=== PATIENT | female | born 1990 | race Caucasian/White ===

== ENCOUNTER 2017-04-25 08:20 | Inpatient (IN) | payer BC ==
[2017-04-25 09:22] LABS: Glucose,Whole Blood 99 mg/dL (75-99)
[2017-04-25 09:39] VITALS: BMI 32.2
[2017-04-25] MEDS ORDERED: CARBOPROST TROMETHAMINE 250 MCG/ML 1 ML AMP IM PRN (09:42)
[2017-04-25] MEDS ORDERED: OXYTOCIN 10 UNIT/ML 1 ML VIAL IM PRN (09:42)
[2017-04-25] MEDS ORDERED: LIDOCAINE 1% (PF) 10 MG/ML (30 ML SDV) SQ PRN (09:42)
[2017-04-25] MEDS ORDERED: METHYLERGONOVINE 0.2 MG/ML 1 ML AMP IM PRN (09:42)
[2017-04-25] MEDS ORDERED: TERBUTALINE 1 MG/ML VIAL SQ PRN (09:42)
[2017-04-25] MEDS ORDERED: OXYTOCIN 20 UNITS/1000 ML NS 1,000 ML IV SCH (09:45)
[2017-04-25] MEDS: LACTATED RINGERS 1,000 ML IV SCH ×3 (10:00→15:25)
[2017-04-25 10:08] LABS: Basophils % (A) 0 %; CH 29.5; CHCM 33.5; Eosinophils # (A) 0.1 k/uL (0-0.7); Eosinophils % (A) 1 %; HCT 36.8 % (34.0-46.0); HDW 3.39; Large Platelets Flag Moderate; Luc # (Auto) 0.23; Luc % (Auto) 2; Lymphocytes # (A) 1.6 k/uL (1.0-4.8); Lymphocytes % (A) 15 %; MCH 28.8 pg (25.0-35.0); MCHC 32.5 g/dL (31.0-37.0); MCV 88.6 fL (80.0-100.0); Mean Platelet Volume 11.2; Monocytes # (A) 0.4 k/uL (0-1.0); Monocytes % (A) 4 %; Neutrophils # (A) 8.1 k/uL (1.3-7.7); Neutrophils % (A) 78 %; RBC 4.15 m/uL (3.80-5.40); RDW 15.3 % (11.5-15.5); WBC 10.4 k/uL (3.8-10.6); WBC (Perox) 10.46
--- NOTE | 2017-04-25 10:20 | P.HPOB ---
History of Present Illness H&P Date: 04/25/17 Chief Complaint: My water broke at 5:00 this morning This is a 27-year-old white female 1 para 0 EDC 05/11/2017 at 37-5/7 weeks' gestation. Patient presents with a history of her water breaking this morning, clear fluid, mild irregular contractions to follow. She denies vaginal bleeding. Fetus is been active throughout the . history is significant for blood type A positive, rubella status immune. VDRL testing, urine culture, hepatitis B surface antigen, HIV testing, gonorrhea and chlamydia cultures all negative. One-hour Glucola 155, three- hour GTT consistent with gestational diabetes. Home blood sugar control good. Group B strep cultures negative. Past medical history is significant for asthma no inhaler used as an adult. History of migraine headaches in the past. Past surgical history cholecystectomy 2006, meniscus repair 2007, wisdom teeth extracted 2015, adenoidectomy and tonsillectomy 1994. Current medications dye clean just as needed, vitamin daily, propranolol 40 mg twice daily, vitamin D. ALLERGIES include dairy to which reports intolerance, ibuprofen 2 to reports shortness of breath and seasonal ALLERGIES. Family history is significant for breast cancer in patient's mother, leukemia in her grandfather, diabetes in a nulligravida and father. 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 On exam this is a pleasant white female, 5 foot 0 inches, 165 pounds, vital signs are stable and she is afebrile. The general physical exam is within normal limits. The cervix is 2-3 cm dilated, 60-70% effaced, -2 station, vertex presentation, obvious clear fluid on the perineal body with no fore bag palpated. heart rate is in the 140s with frequent accelerations consistent with reactive NST. Uterine contractions are occurring sporadically, every 8-12 minutes apart of mild intensity. Impression: 37-5/7 weeks intrauterine , spontaneous amniorrhexis. Plan: Close maternal and surveillance, epidural as needed, oxytocin augmentation as needed, anticipate normal spontaneous vaginal delivery. Blood sugar on admission 99, no further blood sugar monitoring required. Review of Systems Except as in HPI Constitutional: Reports as per HPI Past Medical History Past Medical History: No Reported History, Asthma Additional Past Medical History / Comment(s): Hx Migraine headaches, gestional diabetes 03/17/17 History of Any Multi-Drug Resistant Organisms: None Reported Past Surgical History: Adenoidectomy, Cholecystectomy, Tonsillectomy Past Anesthesia/Blood Transfusion Reactions: Postoperative Nausea & Vomiting ( PONV) Past Psychological History: Depression Additional Psychological History / Comment(s): hx depression 9 years ago. none recently Smoking Status: Never smoker Past Alcohol Use History: None Reported Past Drug Use History: None Reported - Past Family History Father Family Medical History: No Reported History Medications and Allergies Home Medications Medication Instructions Recorded Confirmed Type Multivitamins, Thera [Multivitamin] 1 tab PO DAILY 07/11/16 04/25/17 History Propranolol [Inderal] 40 mg PO QAM 07/11/16 04/25/17 History Cholecalciferol (Vitamin D3) 5,000 unit PO DAILY 03/17/17 04/25/17 History [Vitamin D3] Pnv,Calcium 72/Iron/Folic Acid 1 tab PO DAILY 03/17/17 04/25/17 History [ Plus Tablet] Allergies Allergy/AdvReac Type Severity Reaction Status Date / Time [place] And Derivatives Allergy Diarrhea Verified 03/17/17 15:08 Milk Containing Products Allergy Nausea & Verified 03/17/17 15:08 [Dairy] Vomiting & Diarrhea ibuprofen AdvReac Nausea & Verified 03/17/17 14:54 Vomiting Exam - Vital Signs Vital signs: Vital Signs Temp Pulse Resp BP Pulse Ox 04/25/17 09:17 97.7 F 90 18 136/77 98 Intake and Output 04/24/17 04/25/17 04/25/17 22:59 06:59 14:59 Other: Weight 74.843 kg Patient Weight 04/26/17 06:59 Weight 74.843 kg Please see dictation under HPI Assessment and Plan Plan: Close maternal and surveillance. Oxytocin augmentation per hospital protocol. Analgesic options have been reviewed with the patient. Anticipate normal spontaneous vaginal delivery Time with Patient: Less than 30
[2017-04-25] MEDS: BUTORPHANOL 1 MG/ML 1 ML VIAL IV PRN ×2 (12:02→14:14)
[2017-04-25] MEDS ORDERED: BUPIVACAINE (PF) 0.25% 30 ML VIAL ONE (15:09)
[2017-04-25] MEDS ORDERED: fentaNYL (PF) 50 MCG/ML 5 ML AMP ONE (15:09)
[2017-04-25] MEDS ORDERED: SODIUM CHLORIDE 0.9% 100 ML BAG ONE (15:09)
[2017-04-25] MEDS ORDERED: BUPIVACAINE (PF) 0.25% 25 ML, fentaNYL (PF) 200 MCG in SODIUM CHLORIDE 0.9% 71 ML EPIDURAL ONE (15:41)
[2017-04-25] MEDS ORDERED: HYDROCORTISONE 2.5% RECTAL CREAM 30 GM TUBE RECTAL PRN (21:31)
[2017-04-25] MEDS ORDERED: diphenhydrAMINE 25 MG CAP PO PRN (21:31)
[2017-04-25] MEDS ORDERED: diphenhydrAMINE 50 MG/ML 1 ML VIAL IVP PRN ×2 (21:31)
[2017-04-25] MEDS ORDERED: WITCH HAZEL 1 EACH MED..PAD TOPICAL PRN (21:31)
[2017-04-25] MEDS ORDERED: diphenhydrAMINE ELIXIR 25 MG/10 ML CUP PO PRN (21:31)
[2017-04-25] MEDS ORDERED: IBUPROFEN 600 MG TAB PO PRN (21:31)
[2017-04-25] MEDS ORDERED: ACETAMINOPHEN TAB 325 MG TAB PO PRN (21:31)
[2017-04-25] MEDS ORDERED: LANOLIN CREAM 5 GM TUBE TOPICAL PRN (21:31)
[2017-04-25] MEDS ORDERED: BENZOCAINE SPRAY 57GM TOPICAL PRN (21:31)
[2017-04-25] MEDS ORDERED: ZOLPIDEM 5 MG TAB PO PRN (21:31)
[2017-04-25] MEDS ORDERED: diphenhydrAMINE 50 MG CAP PO PRN (21:31)
[2017-04-25] MEDS ORDERED: SIMETHICONE 80 MG CHEWABLE PO PRN (21:31)
--- NOTE | 2017-04-25 21:31 | P.PROBDLV ---
Vaginal Delivery Note - . Vaginal Delivery Note: This is a 27-year-old white female 1 para 0 EDC 05/11/2017 at 37-5/7 weeks' gestation. Patient presented earlier this morning with a history of spontaneous amniorrhexis, clear fluid that occurred at home at 0500 hrs. She had no uterine contractions. Upon admission cervix was 2-3 cm dilated, clear fluid was noted, 60% effacement was documented. Oxytocin was started and titrated per hospital protocol. Group B strep cultures were negative, blood type A+, rubella status immune. Please see my dictated history and physical for details. Patient eventually became uncomfortable, epidural was requested and placed. She progressed through the first stage of labor was judged to be completely dilated at 2005 hours. She pushed in the second stage of labor for 1 hour and 3 minutes. Ultimately the perineal body was prepped and draped in usual sterile fashion. Infant's head delivered occiput anterior and he restituted accordingly. There was a nuchal cord 1 that was reduced on the perineal body. The left or anterior shoulder was gently and easily delivered from underneath the pubic symphysis at which time the oropharynx, nasopharynx, and external nares were bulb suctioned. Patient was officially delivered of a liveborn male infant at 12/17/2007 hours. Umbilical cord was doubly clamped and ligated, he was handed to waiting nurses for evaluation where scores of 9 and 9 at one and 5 minutes respectively were given. Placenta was delivered spontaneously , it was inspected and noted to be intact with trivascular cord at 2111 hours. At this time the perineal body was redraped. Inspection of the cervix, vagina, perineum, periurethral and perirectal areas revealed a small first-degree midline laceration repaired in the usual fashion using a single [id number] suture of 3-0 Vicryl. Excellent reapproximation was noted. Fundus was firm and in the midline, symmetric and 18 week size upon completion of delivery. weighed 2820 g or 6 lbs. 3 oz. All sponge needle and instrument counts are correct at the end of the procedure. Patient and her are declining circumcision further son.
--- NOTE | 2017-04-26 07:04 | P.PN ---
Subjective Principal diagnosis: day #1 Slept well. Pain well controlled. Moderate lochia rubra. No complaints. Objective - Vital Signs Vital signs: Vital Signs Temp 98.3 F 04/26/17 04:00 Pulse 99 04/26/17 04:00 Resp 16 04/26/17 04:00 BP 127/67 04/26/17 04:00 Pulse Ox 98 04/25/17 09:17 Intake & Output 04/25/17 04/26/17 04/26/17 18:59 06:59 18:59 Intake Total 1999 1000 Output Total 301 Balance 1999 699 Weight 74.843 kg Intake: IV 1999 1000 Invasive Line 1 1000 1000 Lactated Ringers 1,000 ml 1000 @ 125 mls/hr IV .Q8H JANE Rx#:[id number] Output: Urine 1 Estimated Blood Loss 300 Other: # Voids 1 - Constitutional General appearance: Present: average body habitus, cooperative - EENT Eyes: Present: PERRLA ENT: Present: hearing grossly normal - Neck Neck: Present: normal ROM - Respiratory Respiratory: bilateral: CTA - Cardiovascular Rhythm: regular - Gastrointestinal General gastrointestinal: Present: normal bowel sounds - Genitourinary Genitourinary Comment(s): Perineal body clean and dry. Fundus firm and in the midline, symmetric, 18 week size. - Integumentary Integumentary: Present: normal, normal turgor - Neurologic Neurologic: Present: CNII-XII intact - Musculoskeletal Musculoskeletal: Present: gait normal, strength equal bilaterally - Psychiatric Psychiatric: Present: A&O x's 3, appropriate affect, intact judgment & insight - Labs CBC & Chem 7: 04/25/17 09:53 Labs: Abnormal Lab Results - Last 24 Hours (Table) 04/25/17 Range/Units 09:53 Plt Count 117 L (150-450) k/uL Neutrophils # 8.1 H (1.3-7.7) k/uL Assessment and Plan Plan: Continue care. Likely discharge home tomorrow. Time with Patient: Less than 30
[2017-04-26] MEDS: SENNOSIDES-DOCUSATE SODIUM 1 EACH TAB PO SCH (08:59)
[2017-04-26] MEDS: Acetaminophen-Codeine 300-30mg TAB PO PRN ×2 (13:14→17:50)
[2017-04-27] MEDS: SENNOSIDES-DOCUSATE SODIUM 1 EACH TAB PO SCH ×2 (00:27→08:05)
[2017-04-27] MEDS: Acetaminophen-Codeine 300-30mg TAB PO PRN (00:27)
[2017-04-27 00:54] VITALS: RESP 16
[2017-04-27 08:02] VITALS: BP 130/72; PULSE 90; TEMP 97.6
--- NOTE | 2017-04-27 08:49 | P.DS ---
Providers Date of admission: 04/25/17 09:11 Expected date of discharge: 04/27/17 Attending physician: More Douglas Primary care physician: Stated None - Discharge Diagnosis(es) (1) Normal spontaneous vaginal delivery Current Visit: Yes Status: Acute Hospital Course: The patient is a 27-year-old 1 para 0 admitted at 37-5/7 weeks by good dating parameters she is admitted with a spontaneous rupture member is clear fluid. On labor and delivery she had Pitocin started and ultimately an epidural catheter was placed for analgesia. She progressed to complete where after she pushed to a normal spontaneous vaginal delivery of a viable 6 lbs. 3 oz. baby boy with Apgars of 9 at 1 minute and 9 at 5 minutes. Her course was unremarkable vital signs remaining stable and her temperature was afebrile throughout. She was deemed stable for discharge by the morning of post day #2 was discharged home to follow-up in the office in 6 weeks' time routinely. Discharge instructions included calling for any significantly increased bleeding or foul-smelling lochia, significantly increased fever abdominal pain, perineal complaints, breast complaints, or anything else that concerned her. She was additionally instructed to have nothing in the vagina for at least 6 weeks time to include intercourse. She understood her instructions and agrees to follow up as noted above. Discharge medications included pkzh-xcp-[id number] analgesic pain medications as well as a prescription for Tylenol 3, 1-2 by mouth every 6 hours when necessary pain, #12 dispensed with no refills. Maternal blood type is A+ and rubella status is immune. Procedures: #1. Pitocin augmentation #2. Epidural analgesia #3. Normal spontaneous vaginal delivery #4. Repair of perineal laceration Patient Condition at Discharge: Good Plan - Discharge Summary New Discharge Prescriptions: No Action Multivitamins, Thera [Multivitamin] 1 tab PO DAILY Propranolol [Inderal] 40 mg PO QAM Pnv,Calcium 72/Iron/Folic Acid [ Plus Tablet] 1 tab PO DAILY Cholecalciferol (Vitamin D3) [Vitamin D3] 5,000 unit PO DAILY Discharge Medication List Multivitamins, Thera [Multivitamin] 1 tab PO DAILY 07/11/16 [History] Propranolol [Inderal] 40 mg PO QAM 07/11/16 [History] Cholecalciferol (Vitamin D3) [Vitamin D3] 5,000 unit PO DAILY 03/17/17 [History] Pnv,Calcium 72/Iron/Folic Acid [ Plus Tablet] 1 tab PO DAILY 03/17/17 [ History] Follow up Appointment(s)/Referral(s): Mauri Merino MD [STAFF PHYSICIAN] - 6 Weeks Activity/Diet/Wound Care/Special Instructions: Discharge home today 04/27/2017. Make follow up appt for 6wks. Dr. Merino [phone]... Discharge Disposition: HOME SELF-CARE
== END 2017-04-27 10:50 | disposition home or self-care (01) | DRG 775 ==
LOC: FBPOP 08:20 → 4FBP 09:11
PROVIDERS: ADMIT Obstetrics & Gynecology; ATTEND Obstetrics & Gynecology
PROC: 10E0XZZ Delivery of Products of Conception, External Approach (ICD-10-PCS; principal; 2017-04-25)
PROC: 0HQ9XZZ Repair Perineum Skin, External Approach (ICD-10-PCS; 2017-04-25)
PROC: 00HU33Z Insertion of Infusion Device into Spinal Canal, Percutaneous Approach (ICD-10-PCS; 2017-04-25)
PROC: 3E0R3CZ (ICD-10-PCS; 2017-04-25)
DX: O24.429 Gestational diabetes mellitus in childbirth, unspecified control (principal); O99.354 Diseases of the nervous system complicating childbirth; O69.81X0 Labor and delivery complicated by cord around neck, without compression, not applicable or unspecified; O70.0 First degree perineal laceration during delivery; O99.344 Other mental disorders complicating childbirth; F32.9 Major depressive disorder, single episode, unspecified; O99.52 Diseases of the respiratory system complicating childbirth; J45.909 Unspecified asthma, uncomplicated; G43.909 Migraine, unspecified, not intractable, without status migrainosus; Z37.0 Single live birth; Z3A.37 37 weeks gestation of pregnancy; Z79.899 Other long term (current) drug therapy; Z88.6 Allergy status to analgesic agent
CPT/HCPCS: 85025; 88307

== ENCOUNTER 2019-02-17 14:34 | Inpatient (IN) | payer BC ==
[2019-02-17] MEDS: LACTATED RINGERS 1,000 ML IV SCH ×2 (17:15→18:03)
[2019-02-17] MEDS ORDERED: METHYLERGONOVINE 0.2 MG/ML 1 ML AMP IM PRN (17:20)
[2019-02-17] MEDS ORDERED: TERBUTALINE 1 MG/ML VIAL SQ PRN (17:20)
[2019-02-17] MEDS ORDERED: OXYTOCIN 10 UNIT/ML 1 ML VIAL IM PRN (17:20)
[2019-02-17] MEDS ORDERED: LIDOCAINE 0.5% (PF) 5 MG/ML (50 ML SDV) SQ PRN (17:20)
[2019-02-17] MEDS ORDERED: CARBOPROST TROMETHAMINE 250 MCG/ML 1 ML AMP IM PRN (17:20)
[2019-02-17] MEDS ORDERED: BUTORPHANOL 1 MG/ML 1 ML VIAL IV PRN (17:22)
--- NOTE | 2019-02-17 17:26 | P.HPOB ---
History of Present Illness H&P Date: 02/17/19 Chief Complaint: 38-0/7 weeks, labor The patient is a 29-year-old 2 para 1001 admitted at 38-0/7 weeks as established by last menstrual period and confirmed by 6 week ultrasound. She is admitted in early active labor with all signs reassuring having had document cer vical change in triage. Her has been uncomplicated and group B strep status is negative. Obstetrical history: 2 para 1001 with 1 previous term vaginal delivery without complications though she was a gestational diabetic. EDC for this is 03/03/2019 as established by last menstrual period and confirmed by a 6 week ultrasound. Laboratory workup demonstrates a blood type of A+ with a negative antibody screen. Rubella status is immune. The remainder of the laboratory workup was within normal limits. Early Glucola as well as second trimester Glucola were within normal limits. Group B strep status is negative. Gynecologic history: Unremarkable with no history of any infections to include STDs. Review of Systems Review of systems is confined to history of present illness. Past Medical History Past Medical History: No Reported History, Asthma Additional Past Medical History / Comment(s): Hx Migraine headaches, gestional diabetes 03/17/17 History of Any Multi-Drug Resistant Organisms: None Reported Past Surgical History: Adenoidectomy, Cholecystectomy, Tonsillectomy Past Anesthesia/Blood Transfusion Reactions: Postoperative Nausea & Vomiting (PONV) Smoking Status: Former smoker - Past Family History Father Family Medical History: No Reported History Medications and Allergies Home Medications Medication Instructions Recorded Confirmed Type No Known Home Medications 02/17/19 02/17/19 History Allergies Allergy/AdvReac Type Severity Reaction Status Date / Time [place] And Derivatives Allergy Diarrhea Verified 02/17/19 14:44 Milk Containing Products Allergy Nausea & Verified 02/17/19 14:44 [Dairy] Vomiting & Diarrhea ibuprofen AdvReac Nausea & Verified 02/17/19 14:44 Vomiting Exam Vital Signs Temp Pulse Resp BP Pulse Ox 02/17/19 14:51 97.4 F L 75 16 121/81 98 Intake and Output 02/17/19 02/17/19 02/17/19 06:59 14:59 22:59 Other: Weight 69.853 kg In general, this is a well-developed, well-nourished white female in some discomfort as she is in labor. Her heart has a regular rhythm and rate without murmur. Her lungs are clear to auscultation bilaterally in all [place]. Her abdomen is gravid, nondistended, has normal active bowel sounds, is soft, nontender, and without any palpable masses aside from uterine fundus. Her extremities are without any cyanosis, clubbing, or edema and are nontender to palpation bilaterally. Digital cervical examination demonstrates her cervix to be 6-7 cm dilated, approximately 70% effaced, the vertex in presentation at -2 station. Artificial rupture of membranes is carried out demonstrating clear fluid. Assessment and Plan (1) Active labor at term Current Visit: Yes Status: Acute Code(s): [id number] - SNOMED Code(s): 59648916 Plan: The patient is admitted for close maternal and surveillance and expectant management will be practiced. She is a good candidate for both IV or epidural analgesia, whichever she may choose. At this time she is requesting epidural analgesia and is in the process of receiving her bolus. Should she made no significant progress over the next hour or 2, Pitocin augmentation will be added. I would anticipate normal spontaneous vaginal delivery.
[2019-02-17 17:33] LABS: Basophils % (A) 0 %; Eosinophils # (A) 0.1 k/uL (0-0.7); Eosinophils % (A) 1 %; HCT 38.3 % (34.0-46.0); HGB 13.1 gm/dL (11.4-16.0); Lymphocytes # (A) 2.2 k/uL (1.0-4.8); Lymphocytes % (A) 21 %; MCH 29.7 pg (25.0-35.0); MCHC 34.2 g/dL (31.0-37.0); MCV 86.9 fL (80.0-100.0); Mean Platelet Volume 11.4; Monocytes # (A) 0.6 k/uL (0-1.0); Monocytes % (A) 5 %; Neutrophils # (A) 7.5 k/uL (1.3-7.7); Neutrophils % (A) 71 %; Platelet Count 122 k/uL (150-450); RDW 14.5 % (11.5-15.5); WBC 10.5 k/uL (3.8-10.6)
[2019-02-17] MEDS ORDERED: ROPIVACAINE 5MG/ML 20ML VIAL ONE (17:55)
[2019-02-17] MEDS ORDERED: SODIUM CHLORIDE 0.9% 100 ML BAG ONE (17:55)
[2019-02-17] MEDS ORDERED: fentaNYL (PF) 50 MCG/ML 5 ML AMP ONE (17:55)
[2019-02-17] MEDS ORDERED: BENZOCAINE/MENTHOL SPRAY 1 GM/SPRAY AEROSOL TOPICAL PRN (20:38)
[2019-02-17] MEDS ORDERED: HYDROCORTISONE 2.5% RECTAL CREAM 30 GM TUBE RECTAL PRN (20:38)
[2019-02-17] MEDS ORDERED: LANOLIN CREAM 5 GM TUBE TOPICAL PRN (20:38)
[2019-02-17] MEDS ORDERED: diphenhydrAMINE 50 MG/ML 1 ML VIAL IVP PRN ×2 (20:38)
[2019-02-17] MEDS ORDERED: diphenhydrAMINE 50 MG CAP PO PRN (20:38)
[2019-02-17] MEDS ORDERED: SIMETHICONE 80 MG CHEWABLE PO PRN (20:38)
[2019-02-17] MEDS ORDERED: HYDROcodone/APAP 7.5-325MG 1 EACH TAB PO PRN (20:38)
[2019-02-17] MEDS ORDERED: ZOLPIDEM 5 MG TAB PO PRN (20:38)
[2019-02-17] MEDS ORDERED: WITCH HAZEL 1 EACH MED..PAD TOPICAL PRN (20:38)
[2019-02-17] MEDS ORDERED: diphenhydrAMINE 25 MG CAP PO PRN (20:38)
[2019-02-17] MEDS ORDERED: OXYTOCIN 20 UNITS/1000 ML NS 1,000 ML IV SCH (20:45)
--- NOTE | 2019-02-17 20:45 | P.PROBDLV ---
Vaginal Delivery Note - . Vaginal Delivery Note: The patient is a 29-year-old 2 para 1001 admitted at 38-0/7 weeks by good dating parameters perches admitted in early active labor with all signs reassuring. She made document cervical change in triage and was found to be dilated to 6 cm. She was therefore admitted having had an uncomplicated and group B strep status being negative. She had artificial rupture of membranes carried out demonstrating clear fluid and had an epidural catheter placed for analgesia. She then made fairly rapid progress to complete and +1 station. She pushed over the course of approximately 30 minutes to a normal spontaneous vaginal delivery of a viable 7 lbs. 8 oz. baby boy with Apgars of 8 at 1 minute and 8 at 5 minutes delivered in the right occiput anterior position. The placenta was delivered spontaneously, intact, and grossly normal with a grossly normal, centrally inserted three-vessel cord. There was a small first- degree midline perineal laceration which was repaired with a single rkpajc-to-hpmpd stitch of 3-0 chromic catgut without difficulty. Estimated blood loss for the case was approximately 200 mL. There were no complications. All sponge, instrument, and needle counts were correct. Both mother and are resting comfortably in recovery.
[2019-02-18] MEDS: ACETAMINOPHEN TAB 325 MG TAB PO PRN ×2 (05:24→21:09)
[2019-02-18] MEDS: SENNOSIDES-DOCUSATE SODIUM 1 EACH TAB PO SCH ×2 (08:47→21:09)
[2019-02-18] MEDS: HYDROcodone/APAP 5-325MG 1 EACH TAB PO PRN ×2 (08:47→13:07)
--- NOTE | 2019-02-18 10:22 | P.DS ---
Providers Date of admission: 02/17/19 16:56 Expected date of discharge: 02/18/19 Attending physician: Mauri Merino Primary care physician: Stated None - Discharge Diagnosis(es) (1) Active labor at term Current Visit: Yes Status: Acute (2) Normal spontaneous vaginal delivery Current Visit: Yes Status: Acute Hospital Course: The patient is a 29-year-old 2 para 1001 admitted at 38-0/7 weeks by good dating parameters perches admitted in early active labor with all signs reassuring. Her is uncomplicated and group B strep status is negative. On labor and delivery, she underwent artificial rupture of membranes and had an epidural catheter placed for analgesia. She progressed quickly to complete and then pushed to a normal spontaneous vaginal delivery of a viable 7 lbs. 8 oz. baby boy with Apgars of 8 at 1 minute and 8 at 5 minutes. Her course was unremarkable vital signs remaining stable and her temperature was afebrile throughout. She was deemed stable for discharge on day #1 was discharged home to follow-up in the office in 6 weeks' time routinely. Discharge instructions included calling for any significantly increased bleeding or foul-smelling lochia, significantly increased fever abdominal pain, perineal complaints, breast complaints, or anything else that concerned her. She was additionally instructed to have nothing in the vagina for at least 6 weeks time to include intercourse. She understood her instructions and agrees to follow up as noted above. Discharge medications included only [id number]-voz-ngurxma analgesic pain medications as needed. The patient is opted not to breast-feed. Maternal blood type is A+ and rubella status is immune. Procedures: #1. Artificial rupture of membranes #2. Epidural analgesia #3. Normal spontaneous vaginal delivery #4. Repair of perineal laceration Patient Condition at Discharge: Good Plan - Discharge Summary New Discharge Prescriptions: No Action No Known Home Medications Discharge Medication List No Known Home Medications 02/17/19 [History] Follow up Appointment(s)/Referral(s): Mauri Merino MD [STAFF PHYSICIAN] - 6 Weeks Discharge Disposition: HOME SELF-CARE
--- NOTE | 2019-02-18 11:38 | P.MSEPDOC ---
Presenting Problems - Arrival Data Date of Arrival on Unit: 02/17/19 Time of Arrival on Unit: 17:00 Mode of Transport: Ambulatory - Complaint OB-Reason for Admission/Chief Complaint: Possible Onset of Labor Comment: pt here complaining of lower abd and pelvic pain and just not feeling myself,. feeling nauseous all day, feeling sharp pains this morning 0730 on right side of. abdomen, have not felt the sharp pains since then. Medical History - Information : 2 Para: 1 Term: 0 : 1 Abortions: Spontaneous or Elective: 0 Number of Living Children: 1 - Gestational Age Gestational Age by LENIN (wks/days): 38 Weeks and 0 Days Review of Systems - Review of Systems Constitutional: No problems Breast: No problems ENT: No problems Cardiovascular: No problems Respiratory: No problems Gastrointestinal: No problems Genitourinary: No problems Musculoskeletal: No problems Neurological: No problems Skin: No problems Vital Signs - Temperature Temperature: 98.0 F Temperature Source: Oral - Pulse Pulse Oximetery Pulse Rate: 75 Pulse Assessment Method: Automatic Cuff Right Brachial Pulse Rate: 87 Pulse Assessment Method: Automatic Cuff - Respirations Respiratory Rate: 14 Oxygen Delivery Method: Room Air O2 Sat by Pulse Oximetry: 99 - Blood Pressure Right Arm Blood Pressure: 125/82 Blood Pressure Mean: 96 Blood Pressure Source: Automatic Cuff Medical Screen Scoring (Pre) - Cervical Exam Dilation: 4-7 cm = 2 Effacement: More than 50% = 2 Membranes: Intact - Uterine Contractions Frequency: > or = 36 weeks =2 Duration: > 40 seconds = 2 Intensity: N/A - Maternal Vital Signs Maternal Temperature: N/A Maternal Blood Pressure: N/A Signs of Preeclampsia: N/A Maternal Respirations: N/A - Pain Assessment Pain Location and Character: Abdomen, Pelvic Pain Scale Used: Numeric (1 - 10) Pain Intensity: 3 Pain Management Goal: 3 Pain Description: *Acute Pain Radiation Location: none Pain Frequency: Constant Pain Duration: 2 Pain Duration Units: Days Pain Behavior: None Exhibited Pain Aggravating Factors: Sitting - Maternal Trauma Maternal Trauma: N/A - Assessment Baseline FHR: 150 Heart Rate - NICHD Category: Category I (Normal) = 0 NST: Reactive - Total Score Total Score (Pre): 8 - Level of Risk Level of Risk: Medium (6-9) Physician Notification (Pre) - Physician Notified Physician Notified Date: 02/17/19 Physician Notified Time: 15:16 Physician/Practitioner Notifed:: Dr Merino - Notification Comment Comment: monitor x 1 hours, recheck cervix, if no change d/c home Physician Notification (Post) - Notification Comment Comment: in labor Disposition - Disposition OB Disposition: Admit I agree with the RN Medical Screening Exam: Yes Risk & Benefit of care provided described in d/c instruction: Yes Diagnosis: ENCOUNTER FOR FULL-TERM UNCOMPLICATED DELIVERY
[2019-02-18 17:46] VITALS: TEMP 98
[2019-02-18 21:52] VITALS: PULSE 73; RESP 14
[2019-02-18 21:54] VITALS: BP 141/86
== END 2019-02-18 22:04 | disposition home or self-care (01) | DRG 807 ==
LOC: FBPOP 14:34 → 4FBP 16:56
PROVIDERS: ADMIT Obstetrics & Gynecology; ATTEND Obstetrics & Gynecology
PROC: 10E0XZZ Delivery of Products of Conception, External Approach (ICD-10-PCS; principal; 2019-02-17)
PROC: 00HU33Z Insertion of Infusion Device into Spinal Canal, Percutaneous Approach (ICD-10-PCS; 2019-02-17)
PROC: 3E0R3BZ Introduction of Anesthetic Agent into Spinal Canal, Percutaneous Approach (ICD-10-PCS; 2019-02-17)
PROC: 0HQ9XZZ Repair Perineum Skin, External Approach (ICD-10-PCS; 2019-02-17)
DX: O70.0 First degree perineal laceration during delivery (principal); Z37.0 Single live birth; Z3A.38 38 weeks gestation of pregnancy; O99.62 Diseases of the digestive system complicating childbirth; K21.9 Gastro-esophageal reflux disease without esophagitis; Z87.891 Personal history of nicotine dependence; Z86.32 Personal history of gestational diabetes; Z87.09 Personal history of other diseases of the respiratory system; Z86.69 Personal history of other diseases of the nervous system and sense organs
CPT/HCPCS: 59025; 85025; 86850; 86900; 86901; 99213

== ENCOUNTER → 2023-04-07 | Outpatient (CLI) | payer BC ==
--- NOTE | 2023-04-07 17:38 | US ---
EXAMINATION TYPE: US thyroid st tissue head/neck DATE OF EXAM: 04/07/2023 COMPARISON: NONE CLINICAL INDICATION: Female, 33 years old with history of E21.0 PRIMARY HYPERPARATHYROIDISM; Primary hyperparathyroidism. GLAND SIZE: Right Lobe: 5.7 x 2.3 x 1.5 cm Overall Parenchyma: homogenous Left Lobe: 4.9 x 1.9 x 2.0 cm Overall Parenchyma: homogeneous Isthmus Thickness: 0.35 cm NODULES RIGHT: # of nodules measured on right: 3 1. 0.6 X 0.6 x 0.3 cm, mid lateral, mixed cystic and solid, anechoic TR 3 nodule, which is wider th an tall, with smooth margins, with echogenic foci. Prior size: No prior 2. 1.0 X 0.9 x 0.5 cm, mid mid, mixed cystic and solid, isoechoic TR 3 nodule, which is wider than tall, with smooth margins, with echogenic foci. Prior size: No prior 3. 0.5 X 0.6 x 0.4 cm, lower mid, cystic or almost completely cystic, benign cyst, which is wider t lorenzo tall, with smooth margins, without echogenic foci. Prior size: No prior LEFT: # of nodules measured on left: 2 1. 0.6 X 0.5 x 0.5 cm, mid lateral, suspected benign colloid cyst which is as wide as it is tall, w ith smooth margins, with echogenic foci. Prior size: No prior 2. 1.2 X 1.2 x 0.9 cm, lower lateral, solid or almost completely solid, hypoechoic TR 4 nodule, wh ich is wider than tall, with smooth margins, with echogenic foci. Prior size: No prior ISTHMUS: # of nodules measured in the isthmus: 0 Bilateral neck scanned, no evidence of lymphadenopathy. Nut Sorter Operator notes:*Unable to visualize parathyroid tissue. IMPRESSION: 1. Consider multinodular goiter. The dominant nodule is a 1.2 cm TR4 nodule on the left which can con tinue to be followed. 2. Unable to identify a discrete parathyroid gland/adenoma.
== END | disposition home or self-care (01) ==
LOC: RADUSWWP 13:30
PROVIDERS: ATTEND Internal Medicine Endocrinology, Diabetes & Metabolism
DX: E04.2 Nontoxic multinodular goiter (principal); E21.0 Primary hyperparathyroidism
CPT/HCPCS: 76536

== ENCOUNTER → 2023-04-07 | Outpatient (CLI) | payer BC | END | disposition home or self-care (01) | LOC: LABWHC1 13:58 | PROVIDERS: ATTEND Internal Medicine Endocrinology, Diabetes & Metabolism | DX: Z53.9 Procedure and treatment not carried out, unspecified reason (principal) ==